=== PATIENT | female | born 1995 | race Caucasian/White ===

== ENCOUNTER 2022-06-18 16:42 | Emergency (ER) | payer OTHER, SELFPAY ==
--- NOTE | 2022-06-18 16:43 | ED.URI ---
HPI - URI/Sore Throat General Chief Complaint: Upper Respiratory Infection Stated Complaint: Congestion,Cough Time Seen by Provider: 06/18/22 16:43 Source: patient Mode of arrival: ambulatory Limitations: no limitations History of Present Illness HPI Narrative: Ms. Edwards is a 27-year-old female patient presenting to the clinic today with complaints of nasal congestion, cough, sinus pressure, sore throat, loss of taste/smell. She reports symptoms began last Friday. Reports recent loss of taste or smell over the last 2-3 days. Did an at home COVID testing was negative. MD elicited complaint: sore throat and nasal congestion Related Data Home Medications Medication Instructions Recorded Confirmed albuterol 90 mcg/actuation aerosol 90 mcg inhalation PRN PRN 06/18/22 06/18/22 inhaler Shortness Of Breath Or Wheezing Allergies Allergy/AdvReac Type Severity Reaction Status Date / Time No Known Allergies Allergy Verified 06/18/22 16:49 Review of Systems Review of Systems: Pertinent positives per HPI. Patient denies any fever, chills, rash, headache, visual changes, dizziness, shortness of breath, chest pain, palpitations, nausea, vomiting, diarrhea, constipation, abdominal pain, or any urinary issues. PMFSH Comments At the time of my signature, I reviewed and agree with the nursing past medical, surgical, social, and family history. There is no relevant family history pertinent to the patient complaint. Exam Narrative: General: Well-developed, well nourished, in no apparent distress Head: Normocephalic, atraumatic Eyes: Pupils equally round and reactive to light bilaterally, EOM intact, sclera and conjunctive clear, no discharge, lids normal Ears: TMs intact and clear, ear canals clear, no drainage, grossly hearing normal. Nose: Nares patent, clear nasal discharge, mild inflammation, mild maxillary sinus tenderness. Mouth: Oral pharynx without lesions or masses, good dentition, MMM. Oropharynx red with mild tonsillar enlargement and exudate Neck: Supple, trachea midline, mild enlargement of anterior cervical nodes, no thyroid masses or goiter palpable. Cardio: Regular rate and rhythm, s1 and s2 normal, no murmur appreciated. Resp: Clear to auscultation bilaterally, no rhonchi, rales, wheezing or rubs Course Course Emergency Course: Portions of this record may have been created with voice recognition software. Level of Care: Express Care Visit Vital Signs Vital signs: Vital Signs Temperature 36.3 C L 06/18/22 16:55 Pulse Rate 93 06/18/22 16:55 Respiratory Rate 18 06/18/22 16:55 Blood Pressure 120/86 06/18/22 16:55 Pulse Oximetry 100 06/18/22 16:55 Oxygen Delivery Room Air 06/18/22 16:55 Temperature 36.3 C L 06/18/22 16:55 Pulse Rate 93 06/18/22 16:55 Respiratory Rate 18 06/18/22 16:55 Blood Pressure 120/86 06/18/22 16:55 Pulse Oximetry 100 06/18/22 16:55 Oxygen Delivery Room Air 06/18/22 16:55 Vital signs reviewed MDM - URI/Sore Throat MDM Narrative Medical decision making narrative: At the time of visit patient is resting comfortably on the exam table. COVID testing was negative in the clinic and strep screen was obtained for culture. I suspect patient has URI pharyngitis. Prescription for prednisone was sent to the pharmacy to help with the congestion and the sinus pressure. Supportive measures were discussed with the patient she voiced understanding of discharge instructions and agrees to treatment plan Differential Diagnosis Differential diagnosis: Likely upper respiratory infection, otitis media, sinusitis, viral infection, bronchitis, influenza, pharyngitis and other (COVID) Lab Data Labs: Lab Results 06/18/22 Range/Units 17:00 POC SARS CoV-2 Ag Negative (Negative) Discharge Plan Discharge Clinical Impression: Upper respiratory infection Qualifiers: URI type: unspecified viral URI Qualified Code(s): J06.9 - Acute upper
[2022-06-18 16:55] VITALS: BP 120/86; PULSE 93; RESP 18; TEMP 36.3; O2SAT 100
== END 2022-06-18 17:18 | disposition home or self-care (01) ==
PROVIDERS: Emergency Provider Nurse Practitioner Family
DX: J06.9 Acute upper respiratory infection, unspecified (principal); J02.9 Acute pharyngitis, unspecified; Z20.822 Contact with and (suspected) exposure to COVID-19; J45.909 Unspecified asthma, uncomplicated
CPT/HCPCS: 87081; 87426; 99213; C9803; G0463

== ENCOUNTER 2024-04-15 16:49 | Emergency (ER) | payer OTHER, SELFPAY ==
[2024-04-15 17:02] VITALS: BP 132/70; PULSE 85; RESP 18; TEMP 36.8; O2SAT 100
--- NOTE | 2024-04-15 17:25 | ED.URI ---
HPI - URI/Sore Throat General Chief Complaint: Upper Respiratory Infection Stated Complaint: congestion Time Seen by Provider: 04/15/24 17:57 Source: patient, RN notes reviewed and old records reviewed Mode of arrival: ambulatory Limitations: no limitations History of Present Illness HPI Narrative: Patient with history of seasonal allergies, takes Zyrtec and Mucinex for same, presents today with complaints of sore throat, nasal congestion, cough. She reports that symptoms got much worse than baseline on Friday. She is concerned because she is in the friend's wedding tomorrow, does not with spread any communicable illnesses. She denies any fever, chills, sweats. She does affirm some lack of energy. No other concerns or complaints at this time Related Data Home Medications Medication Instructions Recorded Confirmed metformin 500 mg tablet mg 04/15/24 Allergies Allergy/AdvReac Type Severity Reaction Status Date / Time No Known Allergies Allergy Verified 04/15/24 17:26 Review of Systems Review of Systems: All systems reviewed & are unremarkable except as noted in HPI and below Constitutional: Constitutional: Reports no additional constitutional complaints ENT: Reports system reviewed and no additional complaints, except as documented, Reports nasal congestion, Reports nasal discharge, Reports post nasal drip and Reports sore throat Cardiovascular: Cardiovascular: Reports no additional cardiovascular complaints Respiratory: Respiratory: Reports no additional respiratory complaints and Reports cough Gastrointestinal: Gastrointestinal: Reports no additional gastrointestinal complaints Allergic/Immunologic: Allergic/Immunologic: Reports as per HPI, Reports seasonal rhinorrhea and Denies wheezing PMFSH Comments At the time of my signature, I reviewed and agree with the nursing past medical, surgical, social, and family history. There is no relevant family history pertinent to the patient complaint. Exam Const: General: cooperative, no acute distress, alert and awake Orientation/consciousness: oriented to person, oriented to place and oriented to time HENMT: Head: normal to inspection Ears: TM abnormal dull and with fluid behind the TM Face/Nose/Sinus: nares abnormal, Nasal discharge present clear and Other nasal findings present ( swelling bilateral nares) Throat: posterior oropharynx abnormal erythema Resp: Effort & Inspection: normal respiratory effort and able to speak in complete sentences Auscultation: clear to auscultation bilaterally, no crackles, no rales, no rhonchi and no wheezes Cardio: Palpation: normal PMI Rate: regular rate Rhythm: regular rhythm Heart sounds: S1 normal heart sound present and S2 normal heart sound present Neuro: General: oriented to person, oriented to place and oriented to time Cranial nerves: Yes CN's II-XII intact bilaterally Psych: Appearance: grossly normal Thought process: Normal thought process present Insight: Good insight present (Psych) Judgement: Good judgement present (Psych) Course Course Level of Care: Express Care Visit Vital Signs Vital signs: Vital Signs Temperature 98.2 F 04/15/24 17:02 Pulse Rate 85 04/15/24 17:02 Respiratory Rate 18 04/15/24 17:02 Blood Pressure 132/70 04/15/24 17:02 Pulse Oximetry 100 04/15/24 17:02 Oxygen Delivery Room Air 04/15/24 17:02 Temperature 98.2 F 04/15/24 17:02 Pulse Rate 85 04/15/24 17:02 Respiratory Rate 18 04/15/24 17:02 Blood Pressure 132/70 04/15/24 17:02 Pulse Oximetry 100 04/15/24 17:02 Oxygen Delivery Room Air 04/15/24 17:02 Reviewed MDM - URI/Sore Throat MDM Narrative Medical decision making narrative: negative COVID, negative flu, negative strep. Culture pending. Nasally voice noted, significant swelling bilateral nares. Throat erythematous. Start 5 day prednisone burst. Follow with primary care provider. Emergency department for new or worse symp
[2024-04-15 17:37] LABS: EDSTREPNEGPOS1 Negative (Negative)
[2024-04-15 17:45] LABS: EDINFLUASCREEN Negative (Negative); EDINFLUBSCREEN Negative (Negative)
[2024-04-15 17:45] LABS: EDCOVIDSCREEN Negative (Negative)
== END 2024-04-15 18:12 | disposition home or self-care (01) ==
PROVIDERS: Emergency Provider Nurse Practitioner Family
DX: J30.9 Allergic rhinitis, unspecified (principal); Z20.822 Contact with and (suspected) exposure to COVID-19; J45.909 Unspecified asthma, uncomplicated; E28.2 Polycystic ovarian syndrome
CPT/HCPCS: 87081; 87426; 87804; 87880; 99213; G0463

== ENCOUNTER 2024-08-04 12:19 | Emergency (ER) | payer OTHER, SELFPAY ==
--- NOTE | 2024-08-04 12:39 | ED.URI ---
HPI - URI/Sore Throat General Chief Complaint: Upper Respiratory Infection Stated Complaint: Congestion,Cough, Body aches Time Seen by Provider: 08/04/24 12:39 Source: patient, RN notes reviewed and old records reviewed Mode of arrival: ambulatory Limitations: no limitations History of Present Illness HPI Narrative: patient recently exposed to influenza presents with flu-like symptoms that began last night. EDC is 12/28/2024. Patient has been taking Tylenol for her symptoms with moderate relief. States that most bothersome symptom is nasal congestion. She is not in any distress Related Data Home Medications ?Medication ?Instructions ?Recorded ?Confirmed ?Last Taken ?Type metformin 500 mg tablet mg 04/15/24 Unknown History Allergies Allergy/AdvReac Type Severity Reaction Status Date / Time No Known Allergies Allergy Verified 08/04/24 12:48 Review of Systems Review of Systems: All systems reviewed & are unremarkable except as noted in HPI and below Constitutional: Constitutional: Reports no additional constitutional complaints, Reports fever(s), Reports headache(s) and Reports lethargy ENT: Reports system reviewed and no additional complaints, except as documented, Reports nasal congestion and Reports nasal discharge Cardiovascular: Cardiovascular: Reports no additional cardiovascular complaints Respiratory: Respiratory: Reports no additional respiratory complaints and Reports cough Gastrointestinal: Gastrointestinal: Reports no additional gastrointestinal complaints PMFSH Comments At the time of my signature, I reviewed and agree with the nursing past medical, surgical, social, and family history. There is no relevant family history pertinent to the patient complaint. Exam Const: General: cooperative, no acute distress, alert and awake Orientation/consciousness: oriented to person, oriented to place and oriented to time HENMT: Head: normal to inspection Ears: TM's normal bilaterally Mouth: Yes moist mucous membranes Throat: posterior oropharynx normal Resp: Effort & Inspection: normal respiratory effort and able to speak in complete sentences Auscultation: clear to auscultation bilaterally, no crackles, no rales, no rhonchi and no wheezes Cardio: Palpation: normal PMI Rate: regular rate Rhythm: regular rhythm Heart sounds: S1 normal heart sound present and S2 normal heart sound present Neuro: General: oriented to person, oriented to place and oriented to time Cranial nerves: Yes CN's II-XII intact bilaterally Psych: Appearance: grossly normal Thought process: Normal thought process present Insight: Good insight present (Psych) Judgement: Good judgement present (Psych) Course Course Level of Care: Express Care Visit Vital Signs Vital signs: Reviewed MDM - URI/Sore Throat MDM Narrative Medical decision making narrative: patient positive for influenza. Discussed acceptable medications to take. Strict emergency department precautions discussed. Discharge instructions reviewed with patient, as well as provided in writing per nursing staff. The instructions also include specific and strict return/GO TO THE ER as well as f/u information. All questions have been answered, and the patient deny any further questions with discharge and discharge plan. Some parts of this dictation were generated by voice recognition software and may contain typographical and/or grammatical inaccuracies. Differential Diagnosis Differential diagnosis: Likely upper respiratory infection, otitis media, bronchitis and influenza Medical Records Attestation: I reviewed the patient's medical records. Lab Data Attestation: I reviewed the patient's lab results. Discharge Plan Discharge Clinical Impression: Influenza Patient Disposition: Home, Self-Care Condition: Stable Instructions: Antibiotic Form, Influenza (ED) Additional Instructions: Use Tylenol to treat your symptoms, you may use up to 1000 mg every 6 hours. You may take Benadryl, it is acceptable for you to take 50 mg every 6 hours. You may use Flonase, follow package instructions. Plenty of rest and fluids. Follow with OBGYN, emergency department for new or worse symptoms Patient Language: Algerian Prescriptions: No Action metformin 500 mg Tablet Follow-up/Referrals: UNKNOWN,DOCTOR [Primary Care Provider] - Stand Alone Forms: Work/School Release IP Time of Disposition: 13:08
[2024-08-04 12:40] VITALS: BP 114/50; PULSE 123; RESP 18; TEMP 36.5; O2SAT 96
[2024-08-04 13:03] LABS: EDCOVIDSCREEN Negative (Negative); EDINFLUASCREEN Positive (Negative); EDINFLUBSCREEN Negative (Negative)
== END 2024-08-04 13:12 | disposition home or self-care (01) ==
PROVIDERS: Emergency Provider Nurse Practitioner Family
DX: O98.519 Other viral diseases complicating pregnancy, unspecified trimester (principal); J10.1 Influenza due to other identified influenza virus with other respiratory manifestations; Z3A.00 Weeks of gestation of pregnancy not specified; Z20.822 Contact with and (suspected) exposure to COVID-19
CPT/HCPCS: 87426; 87804; 99212; G0463

== ENCOUNTER 2024-12-21 17:26 | Outpatient (CLI) | payer OTHER, SELFPAY ==
[2024-12-21 18:10] LABS: Hematocrit 34.7 % (37.0-47.0); Hemoglobin 11.3 g/dL (12.0-15.0); Mean Corpuscular HGB Conc 32.6 g/dl (32-36); Mean Corpuscular Hemoglobin 30.1 pg (26-34); Mean Corpuscular Volume 92.5 fl (80-100); Mean Platelet Volume 10.6 fl (7.4-10.4); Platelet Count Result 259 k/mm3 (150-375); Red Blood Count 3.75 M/mm3 (4.2-5.4); Red Cell Distribution Width 13.4 % (11.5-14.5); White Blood Count 14.2 K/mm3 (4.5-10.0)
[2024-12-21 18:51] LABS: Syphilis IgG/IgM Antibody Non-Reactive (Nonreactive)
== END 2024-12-21 17:27 | disposition home or self-care (01) ==
LOC: ANHLAB 17:29
PROVIDERS: Visit Provider Obstetrics & Gynecology
DX: Z34.93 Encounter for supervision of normal pregnancy, unspecified, third trimester (principal); Z3A.00 Weeks of gestation of pregnancy not specified
CPT/HCPCS: 36415; 85027; 86593; 86850; 86900; 86901

== ENCOUNTER 2024-12-22 09:54 | Inpatient (IN) | payer OTHER, SELFPAY ==
[2024-12-22] VITALS (40 sets, daily range): BP systolic 97–114; BP diastolic 35–70; PULSE 60–91; RESP 12–18; TEMP 36.2–36.7; O2SAT 98–100; BMI 36.3
--- NOTE | 2024-12-22 06:56 | PM.IMHP ---
H&P: HPI History of Present Illness Date/Time: 12/22/24 06:56 Chief Complaint: Breech presentation Narrative: 29-year-old 1 para 0 at term with breech presentation refuses attempt at external version the has been uncomplicated Review of Systems Review of Systems: All systems reviewed & are unremarkable except as noted in HPI and below Constitutional: Constitutional: Reports no additional constitutional complaints, Reports fever(s), Reports headache(s) and Reports lethargy ENT: Reports system reviewed and no additional complaints, except as documented, Reports nasal congestion and Reports nasal discharge Cardiovascular: Cardiovascular: Reports no additional cardiovascular complaints Respiratory: Respiratory: Reports no additional respiratory complaints and Reports cough Gastrointestinal: Gastrointestinal: Reports no additional gastrointestinal complaints PMFSH Family History Family History Grandparent Breast cancer Social History Social History Substance use: never Spiritual care concerns: No Meds Home Medications and Allergies Home Medications ?Medication ?Instructions ?Recorded ?Confirmed ?Type metformin 500 mg tablet 500 mg 04/15/24 History albuterol sulfate 90 mcg/actuation inhalation 12/06/24 History aerosol inhaler cetirizine 10 mg tablet (24Hour 10 mg PO DAILY 12/06/24 12/06/24 History Allergy) generic 12/06/24 History Allergies Allergy/AdvReac Type Severity Reaction Status Date / Time No Known Allergies Allergy Verified 08/04/24 12:48 Exam Const: General: cooperative, healthy appearing and comfortable Nutritional Appearance: average body habitus Orientation/consciousness: oriented to person, oriented to place and oriented to time Resp: Effort & Inspection: normal respiratory effort Cardio: Rate: regular rate Rhythm: regular rhythm Heart sounds: S1 normal heart sound present and S2 normal heart sound present GI: Inspection: normal to inspection (Gravid soft uterus) Assessment and Plan Assessment and plan (1) Term : Code(s): Z34.90 - Encounter for supervision of normal , unspecified, unspecified trimester Status: Acute (2) Breech presentation: Code(s): O32.1XX0 - Maternal care for breech presentation, not applicable or unspecified Status: Acute Plan Proceed with low-transverse section. Risks and benefits reviewed in full
[2024-12-22] MEDS: ACETAMINOPHEN 500 MG TABLET 1000 MG PO ×3 (10:28→23:50)
[2024-12-22] MEDS: LACTATED RINGERS 1,000 ML 125 ML IV CONT (10:28)
--- NOTE | 2024-12-22 10:39 | LDADM ---
This patient, Ciarra Ware, was admitted to Labor/Delivery/Recovery 120 on 12/22/24 at 09:54. Plans for labor, pain management and were discussed with patient. Patient/family oriented to hospital policies and general routines including ID bracelet, bed and alarms, visiting hours, pain management, procedures, bathroom and other care routines, personal items, smoking policy, room service/diet and guest tray routines, security routines, and visiting hours. Patient/Family are encouraged to report perceived risks to care and to ask questions if they do not understand what they are told or what they should do. See OBIX for further documentation.
[2024-12-22 11:19] LABS: HIV 1/2 Ab P24 Ag Result Negative (Negative)
--- NOTE | 2024-12-22 11:39 | WPDHPUPDATE1 ---
History and Physical Update Update Date/Time: 12/22/24 11:39 History and Physical has been reviewed, including an updated exam of the patient. There are NO changes in the patient's condition. Risks, benefits, and alternatives have been discussed and questions answered. Patient agrees to proceed with procedure.
[2024-12-22] MEDS: FAMOTIDINE 20 MG/2 ML VIAL IV PUSH (11:54)
[2024-12-22] MEDS: ONDANSETRON INJ 4 MG/2 ML VIAL IV PUSH (11:54)
--- NOTE | 2024-12-22 12:51 | P.PCNOB_ITS ---
OB - Delivery Note Procedure Delivery date: 12/22/24 Pre-op diagnosis: Breech Presentation Post-op Diagnosis: Same Induction method: None Delivery monitor: External FHT Prior to decision for section, [facility] labor guidelines were considered and discussed with the patient and staff. Decision made to proceed with the section.: Yes Procedure Performed: Primary Surgeon: Carter Teixeira MD Anesthesia type: Spinal Description of Procedure/Findings: See dictation Estimated Blood Loss: 350 Drains: No Packing: No Pathology: None sent Complications: No immediate complications Condition: Stable Disposition: PACU Baby Date of : 12/22/24 Time of : 12:30 Gestational Age by Date: 39 Infant gender: Female Weight (pounds): 7 Weight (ounces): 4 presentation: isatu breech position: Right Sacrum Anterior Placenta delivery description: Manual Removal Cord Vessel Description: 3 Vessels score one minute: 8 score five minutes: 9 Narrative: Patient was prepped draped in normal sterile fashion placed in the supine position. Under excellent spinal anesthetic the abdomen was entered through a Pfannenstiel incision progressive layers of fascia. Fascia incised midline cure number outward fashion bilaterally. Underlying muscles were sharply dissected and prior peritoneum elevated Sarah clamp. This was entered by sharp dissection carried superiorly and inferiorly to the dome of the bladder. Bladder blade placed. Bladder flap a tore returned. Bladder low-transverse incision made and sacrum delivered to the maternal right the legs were delivered medially the arms delivered medially as well and the head delivered in the flexed position cord clamped x2 and cut passed off the table given Apgars of 8 [id number] 5 cord blood was drawn the placenta delivered intact manually. Uterus delivered the abdomen moist towel was wrapped. After assuring no membranes or debris remained in the uterus, uterus closed with continuous running locking 0 Vicryl from lateral edge to lateral edge. A 2nd imbricating layer 0 Vicryl was placed in similar fashion from lateral edge to lateral edge of the uterus was somewhat boggy and 0.2 of Methergine was given IM and which responded quickly. The ovaries and tubes appeared within normal limits in the uterus returned the abdomen. Hysterotomy incision inspected 1 last time noted be hemostatic. Laps removed and accounted for the fascia closed with continuous running 0 Vicryl from lateral edge to lateral edge. Irrigation the subcutaneous layer and the skin closed with 4-0 Monocryl and glue. QBL was 350cc. All sponge, needle, instrument counts were correct. There were no immediate complications
--- NOTE | 2024-12-22 12:55 | PM.DS ---
DS: Admitting Diagnosis Discharge Date 12/24/2024 Admitting Diagnosis Term breech presentation DS: Discharge Diagnosis Discharge Diagnosis (1) Term : Code(s): Z34.90 - Encounter for supervision of normal , unspecified, unspecified trimester Status: Acute (2) Breech presentation: Code(s): O32.1XX0 - Maternal care for breech presentation, not applicable or unspecified Status: Acute DS: Summary Hospital Course Reason for hospitalization: Patient was admitted for primary low-transverse section on 12/22/2024 for breech presentation. Hospital Course: The patient's hospital course unremarkable. She remained afebrile. She was up, voiding without difficulty, eating diet, ambulating, and generally without complaints. Time Spent with Patient Time attestation: Total time spent providing and/or coordinating discharge services: Exam Const: General: cooperative, healthy appearing and comfortable Orientation/consciousness: oriented to person, oriented to place and oriented to time Resp: Effort & Inspection: normal respiratory effort Cardio: Rate: regular rate Rhythm: regular rhythm Heart sounds: S1 normal heart sound present and S2 normal heart sound present GI: Inspection: normal to inspection (Fundus firm below umbilicus) and incision (Wound is clean dry and intact) DS: Data Data Completed and Pending Labs on day of discharge: Labs from last 24 hours 12/22/24 10:09 HIV 1&2 Ab/P24 Ag 4thGn Negative Discharge Plan Discharge Attending physician on discharge: Carter Vivas Discharging Clinician: Carter Vivas Patient Disposition: Home Activity: may shower, no straining, may drive after 2 weeks and pelvic rest Diet: heart healthy Wound Care Instructions: follow printed instructions Patient Instructions: Antibiotic Form Patient Language: Czech Stand Alone Forms: General Discharge Information Follow-up/Referrals: Carter Vivas MD [Physician] - Discharge Medications: New hydrocodone-acetaminophen 5-325 mg tablet 1 tablet PO Q4H PRN (Reason: pain) Qty: 20 0RF Continued metformin 500 mg Tablet 500 mg albuterol sulfate 90 mcg/actuation HFA aerosol inhaler INHALATION generic cetirizine [24Hour Allergy] 10 mg tablet 10 mg PO DAILY Date of admission: 12/22/24 09:54 Primary Care Provider: PHYSICIAN,DINKEY LOCOMOTIVE OPERATOR Admitting Provider: Carter Vivas Attending physician on admission: Carter Vivas Condition: Stable
[2024-12-22] MEDS: KETOROLAC 15 MG/ML VIAL (*BKC) IV PUSH ×3 (13:42→23:50)
[2024-12-22] MEDS: OXYTOCIN 30 UNITS/NS 500 ML 30 UNITS/500 ML BAG 125 UNITS IV CONT (13:43)
[2024-12-22] MEDS: SIMETHICONE 80 MG TAB.CHEW PO ×2 (13:59→17:19)
--- NOTE | 2024-12-22 15:12 | OBPPTRN ---
Patient transferred to post room #279 via stretcher. Support person- spouse Miguel A present. Oriented to unit, room, information board, rooming in, admission packet and security measures. Patient verbalizes understanding.
[2024-12-22] MEDS: DOCUSATE SODIUM 100 MG CAPSULE PO (17:19)
[2024-12-23 01:00] VITALS: BP 96/52; PULSE 77; RESP 16; TEMP 36.5; O2SAT 97
[2024-12-23 05:58] LABS: Basophils Absolute Auto 0.1 K/mm3 (0.0-0.1); Basophils Percent Auto 0.4 % (0.2-1.2); Eosinophils Absolute Auto 0.2 K/mm3 (0-0.3); Eosinophils Percent Auto 1.1 % (0-4.4); Hematocrit 31.4 % (37.0-47.0); Hemoglobin 10.2 g/dL (12.0-15.0); Immature Granulocyte Absolute 0.19 K/mm3 (0.00-0.031); Immature Granulocyte Percent A 1.3 % (0-0.5); Lymphocytes Percent Auto 16.3 % (18.3-44.2); Mean Corpuscular HGB Conc 32.5 g/dl (32-36); Mean Corpuscular Hemoglobin 30.2 pg (26-34); Mean Corpuscular Volume 92.9 fl (80-100); Mean Platelet Volume 11.1 fl (7.4-10.4); Neutrophils Absolute Auto 10.4 K/mm3 (1.3-6.7); Neutrophils Percent Auto 73.9 % (45.5-73.1); Platelet Count Result 187 k/mm3 (150-375); Red Blood Count 3.38 M/mm3 (4.2-5.4); Red Cell Distribution Width 13.5 % (11.5-14.5); White Blood Count 14.1 K/mm3 (4.5-10.0)
--- NOTE | 2024-12-23 06:38 | P.PNOB_ITS ---
OB - PN: Subj Subjective Date/time seen: 12/23/24 06:38 Patient comments: no complaints, pain well controlled, tolerating diet and flatus present Blachly baby status: doing well OB - PN: Obj Data Labs 12/23/24 05:18 Labs: Laboratory Results - last 24 hr 12/22/24 12/23/24 10:09 05:18 WBC 14.1 H RBC 3.38 L Hgb 10.2 L Hct 31.4 L MCV 92.9 MCH 30.2 MCHC 32.5 RDW 13.5 Plt Count 187 MPV 11.1 H Immature Gran % (Auto) 1.3 H Neut % (Auto) 73.9 H Lymph % (Auto) 16.3 L [place] % (Auto) 7.0 Eos % (Auto) 1.1 Baso % (Auto) 0.4 Lymph # (Auto) 2.30 [place] # (Auto) 1.0 H Eos # (Auto) 0.2 Baso # (Auto) 0.1 Abs Immat Gran (auto) 0.19 H Absolute Neuts (auto) 10.4 H Absolute Nucleated RBC 0.000 Nucleated RBC % 0.0 HIV 1&2 Ab/P24 Ag 4thGn Negative OB - PN A/P Assessment and Plan (1) Term : Code(s): Z34.90 - Encounter for supervision of normal , unspecified, unspecified trimester Status: Acute (2) Breech presentation: Code(s): O32.1XX0 - Maternal care for breech presentation, not applicable or unspecified Status: Acute Plan routine care Time Spent With Patient Time: Total time spent is greater than 50% in coordination of care (as documented) at patient's floor/unit and/or counseling patient: Review of Systems 2 Review of Systems: All systems reviewed & are unremarkable except as noted in HPI and below Constitutional: Constitutional: Reports no additional constitutional complaints, Reports fever(s), Reports headache(s) and Reports lethargy ENT: Reports system reviewed and no additional complaints, except as documented, Reports nasal congestion and Reports nasal discharge Cardiovascular: Cardiovascular: Reports no additional cardiovascular complaints Respiratory: Respiratory: Reports no additional respiratory complaints and Reports cough Gastrointestinal: Gastrointestinal: Reports no additional gastrointestinal complaints Exam 2 Const: General: cooperative, healthy appearing and comfortable O rientation/consciousness: oriented to person, oriented to place and oriented to time Resp: Effort & Inspection: normal respiratory effort Cardio: Rate: regular rate Rhythm: regular rhythm Heart sounds: S1 normal heart sound present and S2 normal heart sound present GI: Inspection: normal to inspection (Fundus firm below umbilicus) and incision (Wound is clean dry and intact)
[2024-12-23] MEDS: KETOROLAC 15 MG/ML VIAL (*BKC) IV PUSH (06:53)
[2024-12-23] MEDS: ACETAMINOPHEN 500 MG TABLET 1000 MG PO ×3 (06:54→19:40)
--- NOTE | 2024-12-23 07:27 | WPDANLDPN2 ---
Anes-Prog Note L&D Date/Time: 12/23/24 07:27 Comfortable throughout: section Neuraxial method: spinal Epidural/Spinal procedure site: clean & non-tender Neuro status: Neuro function grossly intact. Cardiovascular status: normal Respiratory status: normal Airway patency: baseline Mental status: baseline Post-Op hydration status: normal Vital Signs: Last Vital Signs Temp 36.5 C 12/23/24 01:00 Pulse 77 12/23/24 01:00 Resp 16 12/23/24 01:00 BP 96/52 L 12/23/24 01:00 Pulse Ox 97 12/23/24 01:00 O2 Del Method Room Air 12/22/24 21:00 Pain score (VAS): 07/16 I/O: Intake & Output 12/22/24 12/22/24 12/23/24 15:59 23:59 07:59 Output Total 325 1999 Balance -325 -2000 Post-procedural complaints: none Patient feedback: Patient satisfied with anesthetic care.
--- NOTE | 2024-12-23 07:28 | WPDANLDNPN2 ---
Anes-Prog Note L&D-Neuraxial Date/Time: 12/23/24 07:28 Neuraxial medications: intrathecal PF morphine Opiod-related complaints: none Patient feedback: Patient satisfied with post-operative pain management.
[2024-12-23 08:25] VITALS: BP 100/62; PULSE 83; RESP 18; TEMP 37.1; O2SAT 99
[2024-12-23] MEDS: MULTIVIT/MIN/PREN/FOL AC/IRON TABLET 1 TAB PO (09:09)
[2024-12-23] MEDS: DOCUSATE SODIUM 100 MG CAPSULE PO ×2 (09:09→17:20)
[2024-12-23] MEDS: SIMETHICONE 80 MG TAB.CHEW PO ×3 (09:09→17:19)
--- NOTE | 2024-12-23 09:20 | PC.NURSE ---
Introductions were made, then consulted with patient to assess needs related to . Mother led the conversation with her?plans to feed?her and the?experience so far. Per mother baby had been latching ok but unable to maintain latch. Encouraged understanding of the benefits of skin to skin (demonstrating unwrapping infant and placing upright on her chest), stimulating with massage touch, changing positions to encourage wakefulness, how to watch for early feeding cues, responsive feeding, feeding on demand (aiming for 8-12 times in 24 hours, about every 2-3 hours), milk production, building/maintaining a milk supply, duration of feeding, signs of adequate intake/output and how to record on the feeding sheet. Mother works well with her infant with encouragement and education. Reviewed positioning and ear, shoulder, hip alignment, supporting the breast to facilitate a deep latch, asymmetrical latch (off-center), leading with the chin with a big, open, wide gape and body close to mother. Infant latched optimally to the [left] breast in [cradle] position. Education given to the mother of how to visualize the suckling (with good rocking jaw motion), swallows (dropping of the lower jaw) and how to listen for drinking at the breast (the ka sound). was [able] to maintain latch without pain to mother protecting the nipple with optimal positioning and latching. Reviewed comfort measures of healing with a warm, wet washcloth to rinse breast, then leave open to air-dry, good handwashing when or touching the breast/nipples to prevent infection. Mother voiced understanding of skin to skin, stimulating with massage touch, responsive feedings, hand expressed colostrum, talking to infant to encourage if it has been 2 -2.5 hours since the start of the last , to call if does not latch, or if there is discomfort with . Resources used for education were facilitated with the [visual educational handouts/ tool/mom and baby guide], Inpatient/outpatient resources provided with business card, feeding sheet, name written on the communication board, and the mom/baby guide. Parents voiced understanding of information, demonstrated learning and will call if there is a request for assistance. Reported to the Primary RN.
[2024-12-23] MEDS: IBUPROFEN 600 MG TABLET PO ×2 (13:37→19:40)
[2024-12-23 19:40] VITALS: BP 111/63; PULSE 93; RESP 18; TEMP 36.9; O2SAT 99
[2024-12-23] MEDS: LIDOCAINE 5% PATCH 1 PATCH TRANSDERM (23:00)
[2024-12-24] MEDS: ACETAMINOPHEN 500 MG TABLET 1000 MG PO ×3 (03:00→16:18)
[2024-12-24] MEDS: IBUPROFEN 600 MG TABLET PO ×3 (03:00→16:18)
--- NOTE | 2024-12-24 04:49 | P.PNOB_ITS ---
OB - PN: Subj Subjective Date/time seen: 12/24/24 04:49 Patient comments: no complaints, pain well controlled, tolerating diet and flatus present [place] baby status: doing well OB - PN: Obj Data Labs 12/23/24 05:18 Labs: Laboratory Results - last 24 hr 12/23/24 05:18 WBC 14.1 H RBC 3.38 L Hgb 10.2 L Hct 31.4 L MCV 92.9 MCH 30.2 MCHC 32.5 RDW 13.5 Plt Count 187 MPV 11.1 H Immature Gran % (Auto) 1.3 H Neut % (Auto) 73.9 H Lymph % (Auto) 16.3 L Cottle % (Auto) 7.0 Eos % (Auto) 1.1 Baso % (Auto) 0.4 Lymph # (Auto) 2.30 Cottle # (Auto) 1.0 H Eos # (Auto) 0.2 Baso # (Auto) 0.1 Abs Immat Gran (auto) 0.19 H Absolute Neuts (auto) 10.4 H Absolute Nucleated RBC 0.000 Nucleated RBC % 0.0 OB - PN A/P Assessment and Plan (1) Term : Code(s): Z34.90 - Encounter for supervision of normal , unspecified, unspecified trimester Status: Acute (2) Breech presentation: Code(s): O32.1XX0 - Maternal care for breech presentation, not applicable or unspecified Status: Acute Plan Comments: home Time Spent With Patient Time: Total time spent is greater than 50% in coordination of care (as documented) at patient's floor/unit and/or counseling patient: Review of Systems 2 Review of Systems: All systems reviewed & are unremarkable except as noted in HPI and below Constitutional: Constitutional: Reports no additional constitutional complaints, Reports fever(s), Reports headache(s) and Reports lethargy ENT: Reports system reviewed and no additional complaints, except as documented, Reports nasal congestion and Reports nasal discharge Cardiovascular: Cardiovascular: Reports no additional cardiovascular complaints Respiratory: Respiratory: Reports no additional respiratory complaints and Reports cough Gastrointestinal: Gastrointestinal: Reports no additional gastrointestinal complaints Exam 2 Const: General: cooperative, healthy appearing and comfortable O rientation/consciousness: oriented to person, oriented to place and oriented to time Resp: Effort & Inspection: normal respiratory effort Cardio: Rate: regular rate Rhythm: regular rhythm Heart sounds: S1 normal heart sound present and S2 normal heart sound present GI: Inspection: normal to inspection (Fundus firm below umbilicus) and incision (Wound is clean dry and intact)
[2024-12-24 07:40] VITALS: BP 106/70; PULSE 70; RESP 16; TEMP 37.1; O2SAT 99
[2024-12-24] MEDS: SIMETHICONE 80 MG TAB.CHEW PO ×3 (08:34→16:18)
[2024-12-24] MEDS: DOCUSATE SODIUM 100 MG CAPSULE PO ×2 (08:35→16:18)
[2024-12-24] MEDS: MULTIVIT/MIN/PREN/FOL AC/IRON TABLET 1 TAB PO (08:35)
[2024-12-24 19:50] VITALS: BP 139/70; PULSE 98; RESP 20; TEMP 36.4; O2SAT 100
[2024-12-25] MEDS: IBUPROFEN 600 MG TABLET PO ×3 (05:05→11:00)
[2024-12-25] MEDS: ACETAMINOPHEN 500 MG TABLET 1000 MG PO ×3 (05:05→11:00)
--- NOTE | 2024-12-25 06:52 | P.PNOB_ITS ---
OB - PN: Subj Subjective Date/time seen: 12/25/24 06:52 Patient comments: no complaints, pain well controlled, tolerating diet and flatus present baby status: doing well OB - PN: Obj Data Labs 12/23/24 05:18 OB - PN A/P Assessment and Plan (1) Term : Code(s): Z34.90 - Encounter for supervision of normal , unspecified, unspecified trimester Status: Acute (2) Breech presentation: Code(s): O32.1XX0 - Maternal care for breech presentation, not applicable or unspecified Status: Acute Plan home. fu 4 weeks Time Spent With Patient Time: Total time spent is greater than 50% in coordination of care (as documented) at patient's floor/unit and/or counseling patient: Review of Systems 2 Review of Systems: All systems reviewed & are unremarkable except as noted in HPI and below Constitutional: Constitutional: Reports no additional constitutional complaints, Reports fever(s), Reports headache(s) and Reports lethargy ENT: Reports system reviewed and no additional complaints, except as documented, Reports nasal congestion and Reports nasal discharge Cardiovascular: Cardiovascular: Reports no additional cardiovascular complaints Respiratory: Respiratory: Reports no additional respiratory complaints and Reports cough Gastrointestinal: Gastrointestinal: Reports no additional gastrointestinal complaints Exam 2 Const: General: cooperative, healthy appearing and comfortable O rientation/consciousness: oriented to person, oriented to place and oriented to time Resp: Effort & Inspection: normal respiratory effort Cardio: Rate: regular rate Rhythm: regular rhythm Heart sounds: S1 normal heart sound present and S2 normal heart sound present GI: Inspection: normal to inspection (Fundus firm below umbilicus) and incision (Wound is clean dry and intact)
[2024-12-25] MEDS: DOCUSATE SODIUM 100 MG CAPSULE PO (07:17)
[2024-12-25] MEDS: SIMETHICONE 80 MG TAB.CHEW PO ×2 (07:17→11:00)
[2024-12-25] MEDS: MULTIVIT/MIN/PREN/FOL AC/IRON TABLET 1 TAB PO (07:17)
[2024-12-25 08:34] VITALS: BP 106/60; PULSE 79; RESP 18; TEMP 36.3; O2SAT 98
--- NOTE | 2024-12-25 11:40 | PC.NURSE ---
Mother verbalizes she is able to independently latch with appropriate positioning and alignment. She denies any nipple discomfort and is responsively . Infant is currently meeting outcomes for weight, output, jaundice, blood sugar and feeding frequencies of 8-12 times in 24 hours. Mother declines any additional assistance or education at this time. Mother is encouraged to call for assistance if her infant doesn?t latch, pain with latching, questions or concerns. Mother voiced understanding of information shared along with the mom/baby guide for an additional resource. Reported to the Primary RN.
--- NOTE | 2024-12-25 13:18 | PC.NURSE ---
Patient viewed the discharge video Mother & Baby Care, The First Two Weeks. Patient was given the opportunity and encouraged to ask questions. Patient verbalized understanding of information shared and has been given the mother/baby guide for home reference.
[2024-12-27 15:52] VITALS: BP 115/65; PULSE 100; RESP 20; TEMP 36.8; O2SAT 100
== END 2024-12-25 14:43 | disposition home or self-care (01) | DRG 788 ==
LOC: ANHLDR 10:01 → ANHOB2 15:19
PROVIDERS: Admitting Provider Obstetrics & Gynecology; Visit Provider Obstetrics & Gynecology
PROC: 10D00Z1 Extraction of Products of Conception, Low, Open Approach (ICD-10-PCS; CPT 59514; principal; 2024-12-22 12:00)
DX: O32.1XX0 Maternal care for breech presentation, not applicable or unspecified (principal); Z3A.39 39 weeks gestation of pregnancy; Z37.0 Single live birth
CPT/HCPCS: 36415; 85025; 85027; 86593; 86703; 86850; 86900; 86901; A9270; G0432; J1885; J2210; J2274; J2371; J2405; J2590; J7120